=== PATIENT | male | born 1975 | race African-American/Black ===

== ENCOUNTER 2017-12-24 07:52 | Observation (INO) | payer OTHER ==
[~2017-12-24] VITALS: Ht 170.2 cm; Wt 117.1 kg
[2017-12-24] MEDS ORDERED: EPINEPHRINE HCL INJ 1 MG/ML AMP ONE (08:26)
[2017-12-24] MEDS ORDERED: LIDOCAINE 1% W/EPINEPHRINE 20 ML VIAL ONE (08:26)
[2017-12-24] MEDS ORDERED: BUPIVACAINE 0.5%/EPI 30 ML SDV INJ ONE (08:26)
[2017-12-24] MEDS ORDERED: ACETAMINOPHEN 1000 MG/100 ML 100 ML IV ONE (08:56)
[2017-12-24] MEDS ORDERED: LIDOCAINE HCL (LTA) 4 ML SOLN ONE (08:56)
--- NOTE | 2017-12-24 11:37 | Operative Report ---
DATE OF PROCEDURE: December 24, 2017 CHIEF COMPLAINT: Chronic sinusitis, nasal obstruction and chronic tonsillitis. POSTOPERATIVE DIAGNOSES 1. Chronic sinusitis. 2. Nasal obstruction. 3. Chronic tonsillitis. OPERATIVE PROCEDURES 1. Bilateral anterior ethmoidectomy. 2. Bilateral maxillary sinus antrostomy. 3. Bilateral resection of polyps of the maxillary antrum. 4. Septoplasty. 5. Tonsillectomy. ANESTHESIA: Anesthesiology group. INDICATIONS: This 42-year-old male has history of nasal obstruction, postnasal drip, discharge from his nose. He also has 3 to 4 episodes of tonsillitis a year for the past few years. The patient has chronic discharge from his tonsils. His condition has been treated with topical nasal steroid, decongestant, antibiotics with no improvement. On examination, he was noted have a septal spur on the left side about 40% with hypertrophy of the inferior turbinate. 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 The septal spur was also confirmed on the left. Tonsil exam showed 3+ tonsils bilaterally with exudate. It was decided that endoscopic sinus surgery and to a limited extent septoplasty, tonsillectomy and other necessary procedure would be beneficial for him. DESCRIPTION OF PROCEDURE: Patient was taken to the operating room and put under general anesthesia, endotracheally intubated. The nose was injected with 1% Xylocaine with 1:100,000 epinephrine for hemostasis. Epinephrine-soaked pledgets were inserted into the nose and subsequently removed. The left paranasal sinuses were approached first. The middle turbinate was medialized. The bulla ethmoidalis was entered. Anterior ethmoid sinus was dissected in systematic fashion. Polypoid tissue was noted at the anterior ethmoid sinus area. Care was taken during dissection to ascertain the orbit was not entered. Using a curved probe, the maxillary sinus was entered. The antrum was enlarged anteriorly and posteriorly using back-biting and Mihir-Cut forceps respectively. Mucopurulent material was suctioned out from the maxillary sinus. The right paranasal sinuses were approached. The middle turbinate was medialized. Again, the bulla ethmoidalis was entered. Anterior ethmoid sinuses were dissected in a systematic fashion. Care was taken during dissection to ascertain the orbit was not entered. Polypoid changes were noted in the anterior ethmoid sinus area. Using a curved probe, the natural ostium of the maxillary sinus was entered. This was enlarged anteriorly and posteriorly using back-biting and Mihir-Cut forceps respectively. Small maxillary antrum was noted. The mucopurulent material was suctioned out from the maxillary antrum. The septoplasty was performed. Using the Sublette elevator, the left septum was medialized, thereby correcting the septal spur. The nasopharynx was examined. The adenoid tissue was not noted to be hypertrophied or inflamed. The tonsillectomy was performed. The patient was re-positioned. He was put in a Fransisca position. A McIvor mouth gag was inserted. The tonsillar fossae were injected with 0.5% Marcaine with 1:200,000 epinephrine. The right tonsil was retracted medially. A plane was created between the tonsil and tonsillar bed. Dissection was carried down the inferior pole. Tonsil was snared off. A similar procedure was carried on the contralateral side. Hemostasis in tonsillar fossae was achieved using the suction cautery. The nasopharynx, oropharynx, and oral cavity were irrigated with copious amount of normal saline. The stomach was suctioned out at the end of procedure. The patient tolerated the above procedure well. Estimated blood loss about 20 mL. He was given 20 mg of Decadron intraoperatively. Patient was able to be transferred to the recovery room in stable condition. Job#: [id number] CF cc:BETY URBINA MD
[2017-12-24] MEDS ORDERED: CEFAZOLIN SOD 1 GM VIAL ONE (11:39)
[2017-12-24 12:30] VITALS: BP 148/92
[2017-12-24] MEDS ORDERED: PROMETHAZINE 25MG/ NS 50ML (IV) IV PRN (13:00)
[2017-12-24] MEDS ORDERED: MEPERIDINE HCL/PF 25 MG/0.5 ML AMP IV PRN (13:00)
[2017-12-24] MEDS: LACTATED RINGER'S 1,000 ML IV SCH ×2 (14:18→20:28)
[2017-12-24] MEDS ORDERED: MEPERIDINE HCL INJ 25 MG/ML VIAL ONE (14:20)
[2017-12-24 16:14] VITALS: BP 142/82
[2017-12-24] MEDS: HYDROCODONE BIT/ACETAMINOPHEN 2.5 MG/108MG PER 5 ML SOLUTION NG PRN ×2 (16:26→23:15)
[2017-12-24] MEDS ORDERED: LIDOCAINE HCL 2% JELLY 5 ML TUBE ONE (17:30)
[2017-12-24] MEDS ORDERED: ONDANSETRON HCL INJ 2 MG/ML VIAL ONE (17:30)
[2017-12-24] MEDS ORDERED: DEXAMETHASONE SOD PHOS INJ 4 MG/ML VIAL ONE (17:30)
[2017-12-24] MEDS ORDERED: ROCURONIUM BROMIDE 10 MG/ML 5ML VIAL ONE (17:30)
[2017-12-24] MEDS ORDERED: GLYCOPYRROLATE INJ 1MG/ 5 ML SYR ONE (17:30)
[2017-12-24] MEDS ORDERED: LIDOCAINE HCL 2% LOCAL INJ 5 ML SDV VIAL INJ ONE (17:30)
[2017-12-24] MEDS ORDERED: DESFLURANE 240 ML BTL INH ONE (17:30)
[2017-12-24] MEDS ORDERED: NEOSTIGMINE 5 MG/5ML SYR ONE (17:30)
[2017-12-24] MEDS ORDERED: PROPOFOL IV EMULSION 10 MG/ML 20 ML VIAL ONE (17:30)
[2017-12-24] MEDS ORDERED: MIDAZOLAM HCL 2 MG/2 ML VIAL ONE (17:46)
[2017-12-24] MEDS ORDERED: FENTANYL CITRATE/PF 100MCG/2 ML INJ ONE (17:46)
[2017-12-24 20:00] VITALS: BP 143/75
[2017-12-24] MEDS ORDERED: FUROSEMIDE INJ 10 MG/ML 2 ML VIAL IV ONE ×2 (20:15)
[2017-12-24] MEDS ORDERED: SODIUM CHLORIDE 0.9% 250ML 250 ML IV ONE (20:15)
[2017-12-24] MEDS ORDERED: SODIUM CHLORIDE 0.9% 250ML 250 ML ONE (20:28)
[2017-12-24] MEDS: MEPERIDINE HCL INJ 25 MG/ML VIAL IV PRN (20:30)
[2017-12-24] MEDS ORDERED: CEFAZOLIN SOD 1 GM in WATER STERILE 10ML VIAL 10 ML IV SCH (21:00)
[2017-12-24] MEDS ORDERED: CEFAZOLIN SOD 1 GM/D5W 50ML 50 ML IV SCH (21:00)
[2017-12-25] VITALS: BP 113/59
[2017-12-25 04:00] VITALS: BP 115/63
[2017-12-25] MEDS: HYDROCODONE BIT/ACETAMINOPHEN 2.5 MG/108MG PER 5 ML SOLUTION NG PRN ×2 (04:25→10:30)
[2017-12-25] MEDS: MEPERIDINE HCL INJ 25 MG/ML VIAL IV PRN (07:50)
[2017-12-25 08:22] VITALS: BP 120/65
--- NOTE | 2017-12-25 10:45 | Pre Op History & Physical ---
DATE OF SURGERY: December 24, 2017 CHIEF COMPLAINT: Chronic sinusitis, nasal obstruction, tonsillar hypertrophy and chronic tonsillitis. HISTORY OF PRESENT ILLNESS: This 42-year-old male has history of nasal obstruction, postnasal drip discharge from his nose. He has normal sense of smell. He has no previous injury to the nose. The patient has 3 to 4 episodes of tonsillitis a year for the past few years. The patient had a sleep study which showed that he has severe sleep apnea. The patient's nasal condition and sinus condition has been treated with topical nasal steroid, decongestant, antibiotics with no improvement. The patient is reluctant to use a CPAP machine. CT scan of the paranasal sinuses done before the surgery showed the patient has deviated nasal septum on the left side with chronic sinusitis especially in the maxillary sinus. 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 REVIEW OF SYSTEMS: Showed no recent cardiovascular, respiratory or GI problem. PAST MEDICAL HISTORY: Patient has no significant medical problem. PAST SURGICAL HISTORY: He had no previous surgery. ALLERGIES: Has no known allergy to medication. MEDICATIONS: He is on no regular medication. SOCIAL HISTORY: Nonsmoker. Social drinker. FAMILY HISTORY: Noncontributory. PHYSICAL EXAMINATION VITAL SIGNS: Within normal limits. EARS: Exam shows normal tympanic membranes bilaterally. NOSE: Hypertrophy of the inferior turbinate. THROAT: Oropharynx and oral cavity showed 3+ tonsils bilaterally with no exudate or debris. NECK: No lymph node or thyroid palpable. CHEST: Good air entry bilaterally. CARDIOVASCULAR: S1 and S2. No murmur noted. Mr. Maradiaga has chronic sinusitis, nasal obstruction and tonsillar adenoid hypertrophy which has been resistant to conservative therapy. The suggested treatment is limited endoscopic sinus surgery, septoplasty, tonsillectomy, possible adenoidectomy and other necessary procedure. Complication of procedure includes but not limited to bleeding, infection, CSF leak, blindness, double vision, meningitis, septal perforation, septal hematoma, persistent nasal obstruction, persistent nasal crusting, nasal deformity, recurrence of the sinus problem along with hypernasal speech, nasal regurgitation of food, airway distress, recurrence of the sore throat and persistence of sleep apnea. Alternative would be continued observation, continued antibiotic therapy, topical nasal steroid therapy, systemic steroid therapy, decongestant and nasal CPAP machine. The patient has elected to undergo the surgical procedure. Job#: [id number] DG cc:BETY URBINA MD
== END 2017-12-25 11:00 | disposition home or self-care (01) ==
LOC: OR 07:52 → PACU V 10:34 → IMCU 12:15
PROVIDERS: ADMIT Otolaryngology Otolaryngology/Facial Plastic Surgery; ATTEND Otolaryngology Otolaryngology/Facial Plastic Surgery
DX: J32.0 Chronic maxillary sinusitis (principal); J35.3 Hypertrophy of tonsils with hypertrophy of adenoids; J34.89 Other specified disorders of nose and nasal sinuses; G47.33 Obstructive sleep apnea (adult) (pediatric); J33.8 Other polyp of sinus
CPT/HCPCS: 30115 ×2; 30630; 31254; 42826; 88304; 93005; G0378 ×2; J0171; J0690; J1100; J2001 ×2; J2175 ×2; J2250; J2405; J3490; J7050